=== PATIENT | female | born 1950 | race Caucasian/White ===

== ENCOUNTER → 2017-10-24 | Outpatient (CLI) | payer OTHER, BC ==
[~2017-10-24] MED LIST: CALTRATE PLUS1 EACH PO; CELEBREX200 MG PO; LEVOTHYROXINE50 MCG PO; LUMIGAN 0.50 DROP/22 BOTH EYES; MULTIPLE VITAM1 EAC4 PO; PERCOCET 7.51 TABLET PO; VITAMIN D1000 UNIT PO
== END | disposition home or self-care (01) ==
LOC: NUC 10:50
DX: E04.1 Nontoxic single thyroid nodule (principal); E83.52 Hypercalcemia; M81.0 Age-related osteoporosis without current pathological fracture
CPT/HCPCS: 78072; A9500